=== PATIENT | female | born 1995 | race Caucasian/White ===

== ENCOUNTER 2016-12-06 20:35 | Emergency (ER) | payer OTHER ==
[~2016-12-06] VITALS: Ht 160 cm; Wt 77.1 kg
[~2016-12-06 20:35] MED LIST: NAPROXEN PO; NO MEDICATIONS
== END 2016-12-06 22:23 | disposition home or self-care (01) ==
LOC: SED 20:35
DX: J20.9 Acute bronchitis, unspecified (principal)
CPT/HCPCS: 99283